=== PATIENT | female | born 2005 | race Caucasian/White ===

== ENCOUNTER 2025-03-02 20:31 | Emergency (ER) | payer BC, SELFPAY ==
--- NOTE | ~2025-03-02 | XR_ITS ---
EXAMINATION: XR chest 2V 03/02/2025 21:01 INDICATION: Chest pain PROCEDURE: 2 view chest COMPARISON: No prior studies for comparison. FINDINGS: The lungs are clear. The cardiomediastinal silhouette is within normal limits. There are no pleural effusions. There is no pneumothorax suspected. IMPRESSION: 1: NO ACUTE CARDIOPULMONARY DISEASE. Reviewed, dictated and finalized at location O.
--- OUTSIDE RECORDS SUMMARY | 2025-03-02 20:18 | XMS_ITS | Encounter Summary ---
Author Organization [facility] Address [address] [place] [address] Care Team Providers Care Art Department Head Name Role Phone Unavailable Primary Care Provider Unavailabl e Reason for Visit * Reason Comments Syncope Encounter Details Date Type Department Care Team (Late st Contact Info) Description 03/02/2025 8:18 PM CDT - Present Emergency [facility] [place] [address] [place] [address] Syncope Social History Tobacco Use Types Packs/Day Years Used Date Smoking Tobacco: Never Smokeless Tobacco: Never Tobacco Cessation:Counseling Given: Not Answered Alcohol Use Standard Drinks/Week Comments Never 0 (1 standard drink = 0.6 oz pur e alcohol) Comments No Sex and Gender Information Value Date Recorded Sex Assigned at Female 03/02/2025 6:52 PM CDT Legal Sex Female 6:23 PM CDT Gender Identity Not on file Sexual Orientation Not on file documented as of this encounter Last Filed Vital Signs Vital Sign Reading Time Taken Comments Blood Pressure 139/93 03/02/2025 6:29 PM CDT Pulse 105 03/02/2025 6:29 PM CDT Temperature 36.5 C (97.7 F) 03/02/2025 6:29 PM CDT Respiratory Rate 18 03/02/2025 6:29 PM CDT Oxygen Saturation 100% 03/02/2025 6:29 PM CDT Inhaled Oxygen Concentration - - Weight 61.1 kg (134 lb 11.2 oz) 03/02/2025 6:29 PM CDT Height 167.6 cm (5' 6) 03/02/2025 6:29 PM CDT Body Mass Index 21.74 03/02/2025 6:29 PM CDT documented in this encounter Functional Status * Calculated C-SSRS Risk Score (Lifetime/Recent) Answer Date of Assessment Author Status No Risk Indicated 03/02/2025 6:44 PM CDT Naa Gerber RN Active * [place] Suicide Severity Rating Scale (Screener/Recent Self-Report) Question Answer Date of Assessment Author Status 1. Wish to be (Past 1 Month) No 03/02/2025 6:44 PM CDT Naa Pham RN Active 2. Non-Specific Active Suicidal Thoughts (Past 1 Month) No 03/02/2025 6:44 PM CDT Naa Pham RN Active 6. Suicidal Behavior (Lifetime) No 03/02/2025 6:44 PM CDT Naa Pham RN Active documented as of this encounter ED Notes * Jose Cosby RN - 03/02/2025 8:17 PM CDT This RN was notified by Registration pt left. IV access shows charted. EDOTF. CN notified of IV access. * Naa Pham RN - 03/02/2025 6:42 PM CDT PT from [facility]. Reports chestpain x 1 week. Also reports syncopal episode today at work. Denies urinary sx's. N/v/fever. Pt reports she has had hx of syncopal episode x 4 years. documented in this encounter Plan of Treatment Scheduled Orders Name Type Priority Associated Diagnoses Orde r Schedule CBC W/DIFF AUTOMATED Lab STAT Once for 1 Occurrences starting 03/02/2025 until 03/02/2025 BASIC METABOLIC PANEL Lab STAT Once for 1 Occurrences starting 03/02/2025 until 03/02/2025 TROPONIN, QUANT Lab STAT Now Then Every 2hr for 2 Occurrences starting 03/02/2025 until 03/02/2025 ECG 12 lead EKG-NonRad Routine STAT for 1 Occurrences starting 03/02/2025 until 03/02/2025 POCT urine Point of Care Testing STAT Today for 1 Occurrences starting 03/02/2025 until 03/02/2025 documented as of this encounter Visit Diagnoses Not on filedocumented in this encounter
[2025-03-02 20:34] VITALS: BP 155/102; PULSE 86; RESP 18; TEMP 36.6; O2SAT 100
--- NOTE | 2025-03-02 20:37 | ECG_ITS ---
Test Date: 2025-03-02 20:41:39 Measurements Intervals [place] Rate: 88 P: 45 NM: 153 QRS: 46 QRSD: 98 T: 40 QT: 366 QTc: 443 Interpretive Statements SINUS RHYTHM NONSPECIFIC ST & T-WAVE ABNORMALITY ABNORMAL ECG No previous ECG available for comparison Electronically Signed On 03-03-2025 12:20:50 CDT by Remigio Jones M.D.
[2025-03-02] MEDS: ASPIRIN 81 MG CHEWABLE TABLET 324 MG PO (20:48)
[2025-03-02 20:52] LABS: Hematocrit 41.2 % (37.0-47.0); Hemoglobin 13.8 g/dL (12.0-15.0); Immature Granulocyte Percent A 0.1 % (0-0.5); Lymphocytes Absolute Auto 2.82 K/mm3 (0.9-3.2); Mean Corpuscular HGB Conc 33.5 g/dl (32-36); Mean Corpuscular Hemoglobin 27.3 pg (26-34); Mean Corpuscular Volume 81.4 fl (80-100); Nucleated Red Blood Cells Absolute Auto 0.000 K/mm3 (0.0-0.012); Nucleated Red Blood Cells Perc 0.0 % (0.0-0.2); Platelet Count Result 243 k/mm3 (150-375); Red Blood Count 5.06 M/mm3 (4.2-5.4); White Blood Count 7.7 K/mm3 (4.5-10.0)
[2025-03-02 21:04] LABS: Alanine Aminotransferase 20 U/L (6-35); Albumin Level 4.7 g/dL (3.5-5.1); Alkaline Phosphatase 80 U/L (38-126); Anion Gap 11 mmol/L (4-12); Aspartate Amino Transferase 26 U/L (14-36); Bilirubin,Total 1.5 mg/dL (0.2-1.3); Blood Urea Nitrogen 10 mg/dL (7-17); Calcium 9.3 mg/dL (8.4-10.2); Carbon Dioxide 25 mmol/L (22-30); Chloride 104 mmol/L (98-107); Estimated CRCL calculation 105 ml/min; Estimated Glomerular Filt Rate > 60; Glucose 94 mg/dL (65-110); Lipase 85 U/L (23-300); Potassium 3.9 mmol/L (3.4-5.0); Sodium 140 mmol/L (137-145); Total Protein 8.1 g/dL (6.3-8.2)
[2025-03-02 21:10] LABS: INR 1.1; Prothrombin Time 14.1 Seconds (11.1-14.7)
[2025-03-02 21:11] LABS: Partial Thromboplastin Time 30.0 Seconds (22.3-36.8)
[2025-03-02 21:16] LABS: Troponin I < 0.012 ng/mL (0.000-0.034)
[2025-03-02 21:54] VITALS: BP 106/76; PULSE 66; RESP 18; O2SAT 99
[2025-03-02 21:55] VITALS: PULSE 65
--- OUTSIDE RECORDS SUMMARY | 2025-03-02 22:11 | XMS_ITS | Encounter Summary ---
Author Organization [facility] Address [address] [place] [address] Care Team Providers Care Refractory Repairer Name Role Phone Unavailable Primary Care Provider Unavailabl e Encounter Details Date Type Department Care Team (Latest Contact Info) Description 03/02/2025 Travel Social History Tobacco Use Types Packs/Day Years Used Date Smoking Tobacco: Never Smokeless Tobacco: Never Alcohol Use Standard Drinks/Week Comments Never 0 (1 standard drink = 0.6 oz pur e alcohol) Comments No Sex and Gender Information Value Date Recorded Sex Assigned at Female 03/02/2025 6:52 PM CDT Legal Sex Female 6:23 PM CDT Gender Identity Not on file Sexual Orientation Not on file documented as of this encounter Functional Status * Calculated C-SSRS Risk Score (Lifetime/Recent) Answer Date of Assessment Author Status No Risk Indicated 03/02/2025 6:44 PM CDT Naa Gerber RN Active * [place] Suicide Severity Rating Scale (Screener/Recent Self-Report) Question [...] RN Active documented as of this encounter Plan of Treatment Not on file documented as of this encounter Visit Diagnoses Not on filedocumented in this encounter
--- OUTSIDE RECORDS SUMMARY | 2025-03-02 22:11 | XMS_ITS | Clinical Summary ---
Author Organization [facility] Address [address] [place] [address] Care Team Providers Care Credit Processor Name Role Phone Unavailable Primary Care Provider Unavailabl e Allergies No known active allergies Medications No known medications Encounters Date Type Department Care Team Description 03/02/2025 8:18 PM CDT - Present Emergency [facility] [place] [address] [place] [address] [facility] 03/02/2025 Travel from Last 3 Months Social History Tobacco Use Types Packs/Day Years [...] on file Sexual Orientation Not on file Last Filed Vital Signs Vital Sign Reading [...] Mass Index 21.74 03/02/2025 6:29 PM CDT Plan of Treatment Health Maintenance Due Date Last Done Comments Annual Physical 2007 HPV Vaccines (1 - 3-dose series) 2019 Meningococcal B Vaccine (1 o f 2 - Standard) 2020 Hepatitis C 2022 DTaP, Tdap and Td Vaccines ( 1 - Tdap) 2023 Hepatitis B Vaccines (1 of 3 - 19+ 3-dose series) 2023 COVID-19 Vaccine (1 - 2023-2 5 season) 2025 Meningococcal Vaccine Aged Out No rachel flori eligible based on patient's age to complete this topic Pneumococcal Vaccine: Pediat rics (0 to 5 Years) and At-Risk Patients (6 to 49 Years) Aged Out No longer eligible b ased on patient's age to complete this topic RSV Immunizations Under 20 Months Aged Out No longer eligible based on patient's age to complete this topic
--- OUTSIDE RECORDS SUMMARY | 2025-03-02 22:11 | XMS_ITS | Clinical Summary ---
Author Organization [facility] Address [address] [place] [address] Care Team Providers Care White Metal Corrosion Proofer Name Role Phone Unavailable Primary Care Provider Unavailabl e Allergies Active Allergy Reactions Criticality Noted Date Comments Mold Rash,Cough Low 10/04/2021 Medications diclofenac sodium (VOLTAREN XR) 100 mg Extended Release 24 hour tabletIndication s:Right knee pain, unspecified chronicity Take 1 Tablet (100 mg) by mouth daily. 30 Tablet 02/26/2023 Active Active Problems Problem Noted Date Diagnosed Date Mild intermittent asthma 03/21/2023 Vasovagal syncope 02/26/2023 Social History Tobacco Use Types Packs/Day Years Used Date Smoking Tobacco: Never Assessed Smokeless Tobacco: Never Alcohol Use Standard Drinks/Week Comments Never 0 (1 standard drink = 0.6 oz pur e alcohol) Comments Unknown Sex and Gender Information Value Date Recorded Sex Assigned at Not on file Legal Sex Female 7:47 AM CDT Gender Identity Not on file Sexual Orientation Not on file Last Filed Vital Signs Vital Sign Reading Time Taken Comments Blood Pressure 119/79 07/05/2023 9:22 AM SEQUINS STRINGER Pulse 87 07/05/2023 9:22 AM SEQUINS STRINGER Temperature 36.7 C (98.1 F) 07/05/2023 9:22 AM SEQUINS STRINGER Respiratory Rate 18 07/05/2023 9:22 AM SEQUINS STRINGER Oxygen Saturation 97% 07/05/2023 9:22 AM SEQUINS STRINGER Inhaled Oxygen Concentration - - Weight 62.1 kg (137 lb) 07/05/2023 9:22 AM SEQUINS STRINGER Height 165.1 cm (5' 5) 07/05/2023 9:22 AM SEQUINS STRINGER Body Mass Index 22.8 07/05/2023 9:22 AM SEQUINS STRINGER Plan of Treatment Health Maintenance Due Date Last Done Comments CHLAMYDIA SCREENING (ANNUAL) 11-24 YEARS 2015 HPV VACCINES (1 - 3-dose series) 2019 INFLUENZA VACCINE (#1) 2025 DTAP/TDAP/TD VACCINES (6 - T d or Tdap) 12/21/2032 12/21/2022, 06/21/2005, 2004, Additional history exists HEPATITIS B VACCINES Completed 2004, 2004, 2004, Additional history exists Insurance RONALD PREFERRED RONALD PREFERRED [facility]
[2025-03-02 22:12] VITALS: O2SAT 98
[2025-03-02 22:24] VITALS: BP 111/82; PULSE 76; RESP 18; O2SAT 99
--- NOTE | 2025-03-03 04:39 | ED_ITS ---
HPI - Chest Pain General Chief Complaint: Chest Pain Stated Complaint: Sent by -Chest pain and syncopal episode Time Seen by Provider: 03/02/25 21:43 History of Present Illness HPI narrative: Patient tells me that she frequently has episodes where she passes out, they do not usually cause alarm, she had another episode today where she passed out at work, she felt it coming on and try to have some water ready, and lasted about a minute, she did have a slight headache and some chest pain afterwards, she does not usually have these symptoms when she has syncope so sought medical care. Related Data Allergies Allergy/AdvReac Type Severity Reaction Status Date / Time No Known Allergies Allergy Verified 03/02/25 20:38 Review of Systems 2 Review of Systems: All systems reviewed & are unremarkable except as noted in HPI and below Exam 2 Narrative: EXAMINATION OF ORGAN SYSTEMS/BODY AREAS: Constitutional: Vital signs per nursing GENERAL:[No acute distress, non-toxic appearing.] HEAD: Normal with no signs of head trauma. EYES: EOMI, conjunctiva normal ENT: Hearing grossly intact LUNGS: Nonlabored breathing. Clear to auscultation bilaterally HEART: [Regular rate and rhythm], normal DP and radial pulses bilaterally ABD: [Soft], [nontender to palpation] EXT: Normal range of motion; no leg swelling SKIN: [No rashes or lesions.] NEURO: [Alert and oriented x 3. No gross focal sensory or strength deficits.] PSYCH: Normal affect Course Vital Signs Vital signs: Vital Signs Temperature 97.9 F 03/02/25 20:34 Pulse Rate 86 03/02/25 20:34 Respiratory Rate 18 03/02/25 20:34 Blood Pressure 155/102 H 03/02/25 20:34 Pulse Oximetry 100 03/02/25 20:34 Oxygen Delivery Room Air 03/02/25 20:34 Temperature 97.9 F 03/02/25 20:34 Pulse Rate 76 03/02/25 22:24 Respiratory Rate 18 03/02/25 22:24 Blood Pressure 111/82 03/02/25 22:24 Pulse Oximetry 99 03/02/25 22:24 Oxygen Delivery Room Air 03/02/25 22:12 MDM - Chest Pain MDM Narrative Medical decision making narrative: Patient presenting here with episode of syncope, with some slight chest pain and headache, she has frequent episodes of syncope but not usually with chest pain and headache. Extremely well-appearing here, normal cardiopulmonary exam, negative troponin, chest x-ray without acute abnormality Her EKG on my independent interpretation does show sinus rhythm rate 88, WA 153, QRS 90, QTC 443, on my independent interpretation does show some slight slurring with the ST segment in transfer the, patient determined that she has seen a squaring machine operator for this in the past, and they had reassured her everything was normal. Given her abnormal EKGs, chest pain and syncope, I did discuss with patient that I felt she could benefit from admission, but she wants to go home and does not want to be admitted at this time but does promise to follow-up with cardiology and come back to the ER if her symptoms return. Lab Data 03/02/25 20:45 03/02/25 20:45 Labs: Lab Results 03/02/25 Range/Units 20:45 WBC 7.7 (4.5-10.0) K/mm3 RBC 5.06 (4.2-5.4) M/mm3 Hgb 13.8 (12.0-15.0) g/dL Hct 41.2 (37.0-47.0) % MCV 81.4 (80-100) fl MCH 27.3 (26-34) pg MCHC 33.5 (32-36) g/dl RDW 13.6 (11.5-14.5) % Plt Count 243 (150-375) k/mm3 MPV 10.4 (7.4-10.4) fl Immature Gran % (Auto) 0.1 (0-0.5) % Neut % (Auto) 49.5 (45.5-73.1) % Lymph % (Auto) 36.8 (18.3-44.2) % [place] % (Auto) 6.5 (2.6-8.5) % Eos % (Auto) 6.3 H (0-4.4) % Baso % (Auto) 0.8 (0.2-1.2) % Lymph # (Auto) 2.82 (0.9-3.2) K/mm3 [place] # (Auto) 0.5 (0.1-0.6) K/mm3 Eos # (Auto) 0.5 H (0-0.3) K/mm3 Baso # (Auto) 0.1 (0.0-0.1) K/mm3 Abs Immat Gran (auto) 0.01 (0.00-0.031) K/mm3 Absolute Neuts (auto) 3.8 (1.3-6.7) K/mm3 Absolute Nucleated RBC 0.000 (0.0-0.012) K/mm3 Nucleated RBC % 0.0 (0.0-0.2) % PT 14.1 (11.1-14.7) Seconds INR 1.1 APTT 30.0 (22.3-36.8) Seconds Sodium 140 (137-145) mmol/L Potassium 3.9 (3.4-5.0) mmol/L Chloride 104 (98-107) mmol/L Carbon Dioxide 25 (22-30) mmol/L Anion Gap 11 (4-12) mmol/L BUN 10 (7-17) mg/dL Creatinine 0.69 L (0.7-1.0) mg/dL Estim Creat Clear Calc 105 ml/min Estimated GFR > 60 (59 - ) Glucose 94 (65-110) mg/dL Calcium 9.3 (8.4-10.2) mg/dL Total Bilirubin 1.5 H (0.2-1.3) mg/dL AST 26 (14-36) U/L ALT 20 (6-35) U/L Alkaline Phosphatase 80 (38-126) U/L Troponin I < 0.012 (0.000-0.034) ng/mL Total Protein 8.1 (6.3-8.2) g/dL Albumin 4.7 (3.5-5.1) g/dL Lipase 85 (23-300) U/L Discharge Plan Discharge Clinical Impression: Syncope Patient Disposition: Home Condition: Stable Instructions: Syncope (ED) Additional Instructions: You were offered admission today for your symptoms and your abnormal EKG, you prefer to go home and follow-up outpatient. Please call the squaring machine operator's office and the urologist office to make an appointment as soon as possible. If you change your mind about being admitted, or if you start having any further episodes food chest pain gets worse or you start having shortness of breath or anything else concerning, please come back to the hospital immediately. Patient Language: Bengali Follow-up/Referrals: James Peoples MD [Physician, Cardiology] - 2 Days Darrick Wells MD [Physician, Neurology] - 2 Days PHYSICIAN,TRUCK TRAILER FINAL INSPECTOR [Primary Care Provider, Internal Medicine]
== END 2025-03-02 22:25 | disposition home or self-care (01) ==
LOC: ANHED 22:08
PROVIDERS: Emergency Provider Emergency Medicine
DX: R55 Syncope and collapse (principal); R94.31 Abnormal electrocardiogram [ECG] [EKG]
CPT/HCPCS: 36415; 71046; 80053; 83690; 84484; 85025; 85610; 85730; 93005; 99284; A9270